=== PATIENT | female | born 1980 | race African-American/Black ===

== ENCOUNTER 2017-08-29 10:09 | Emergency (ER) | payer MEDICAID, OTHER ==
[~2017-08-29] VITALS: Ht 167.6 cm; Wt 75.0 kg
[2017-08-29 10:25] VITALS: BP 106/63
== END 2017-08-29 14:30 | disposition left against medical advice (07) ==
LOC: ER 10:59
DX: Z53.21 Procedure and treatment not carried out due to patient leaving prior to being seen by health care provider (principal)
CPT/HCPCS: 81025